=== PATIENT | male | born 2000 | race Two or more races ===

== ENCOUNTER → 2025-07-28 | Emergency (ER) | payer OTHER ==
[~2025-07-28] VITALS: Ht 180.3 cm; Wt 99.8 kg
[~2025-07-28] MED LIST: FAMOTIDINE/PF INJ 20 MG/2 ML VIAL IV ONE; MAG HYDROX/AL HYDROX/SIMETH 30 ML UDC ONE; Magnesium 1GM/D5W 100ML PREMIX 100 ML IV ONE; POTASSIUM CL. PREMIX PERIPHER. 50 ML ONE
[2025-07-28 17:23] VITALS: TEMP 98.3
[2025-07-28] MEDS: IV NS 0.9% 500 ML BAG IV ONE (17:50)
[2025-07-28] MEDS: FAMOTIDINE/PF INJ 20 MG/2 ML VIAL IV ONE (17:51)
[2025-07-28] MEDS: MAG HYDROX/AL HYDROX/SIMETH 30 ML UDC PO ONE (17:55)
[2025-07-28 17:59] LABS: CALCIUM, SERUM 10.3 mg/dL (8.5-10.1); CREATININE 2.5 mg/dL (0.6-1.3); PLATELET COUNT (AUTO) 349 K/uL (150-450); RED CELL DISTRIBUTION WIDTH 13.2 % (11.5-15.0); SODIUM SERUM 136.0 mmol/L (136-145); UREA NITROGEN, BLOOD 28.0 mg/dL (7-18); WHITE BLOOD COUNT (AUTO) 12.9 K/uL (4.3-11.0)
[2025-07-28 18:04] LABS: ASPARTATE AMINOTRANSFERASE 32.0 U/L (15-37); RED BLOOD CELL COUNT(AUTO) 6.54 MIL/uL (4.5-6.0); TOTAL PROTEIN, SERUM 10.2 g/dL (6.4-8.2)
[2025-07-28] MEDS: IV NS 0.9% 1,000 ML BAG IV ONE (18:58)
[2025-07-28] MEDS: POTASSIUM CL. PREMIX PERIPHER. 50 ML IV SCH (18:59)
[2025-07-28] MEDS: Magnesium 1GM/D5W 100ML PREMIX 100 ML IV SCH (19:20)
[2025-07-28 21:22] VITALS: BP 132/80; O2SAT 97
== END | disposition left against medical advice (07) ==
LOC: EDBD 17:31 → ER 17:31
DX: E86.0 Dehydration (principal); E87.20 Acidosis, unspecified; E87.6 Hypokalemia; F15.10 Other stimulant abuse, uncomplicated; M62.82 Rhabdomyolysis; N28.9 Disorder of kidney and ureter, unspecified; R17 Unspecified jaundice; R10.13 Epigastric pain; R11.10 Vomiting, unspecified
CPT/HCPCS: 99284; 96365; 96366; 96375; 96368; 93005; 85025; 80048; 82550; 83690; 80076; 36415; 82553; J1308; J7030; J7040; J3480 ×2; J3475; A4223